=== PATIENT | female | born 1950 | race Caucasian/White ===

== ENCOUNTER 2016-08-26 | Emergency (ER) | payer MEDICARE ==
[2016-08-26] MEDS ORDERED: ASPIRIN CHEW 81 MG TABLET PO STA (00:37)
[2016-08-26] MEDS ORDERED: ASPIRIN CHEW 81 MG TABLET ONE (00:49)
[2016-08-26] MEDS ORDERED: AMOX/CLAV 875 MG/125 MG TABLET PO STA (02:23)
[2016-08-26] MEDS ORDERED: AMOX/CLAV 875 MG/125 MG TABLET PO ONE (02:35)
== END 2016-08-26 05:13 | disposition home or self-care (01) ==
DX: R07.89 Other chest pain (principal); J32.9 Chronic sinusitis, unspecified; I25.10 Atherosclerotic heart disease of native coronary artery without angina pectoris; Z95.5 Presence of coronary angioplasty implant and graft; I10 Essential (primary) hypertension; E11.42 Type 2 diabetes mellitus with diabetic polyneuropathy; Z79.4 Long term (current) use of insulin; M79.7 Fibromyalgia; Z79.02 Long term (current) use of antithrombotics/antiplatelets; Z79.82 Long term (current) use of aspirin
CPT/HCPCS: 36415; 71020; 80053; 83690; 83880; 84443; 84484; 85025; 85610; 85730; 93005; 93010; 99284; 99285; A9270

== ENCOUNTER 2016-09-04 14:16 | Outpatient (CLI) | payer MEDICARE | END 2016-09-04 14:17 | disposition home or self-care (01) | DX: I10 Essential (primary) hypertension (principal) ==

== ENCOUNTER 2017-02-01 11:47 | Outpatient (CLI) | payer MEDICARE ==
[2017-02-01 13:41] LABS: ALBUMIN/GLOBULIN RATIO 0.9 (1.0-2.2); BILIRUBIN,TOTAL 0.3 mg/dL (0.2-1.0); CALCIUM 9.6 mg/dL (8.5-10.3); CREATININE 1.2 mg/dL (0.4-1.0); PHOSPHORUS 4.3 mg/dL (2.5-4.6); POTASSIUM 5.1 mmol/L (3.5-5.0); TOTAL PROTEIN 7.7 g/dL (6.7-8.2); URIC ACID 7.5 mg/dL (2.6-7.2)
== END 2017-02-01 11:48 | disposition home or self-care (01) ==
LOC: LAB 11:47
PROVIDERS: ATTEND Internal Medicine Nephrology
DX: N17.9 Acute kidney failure, unspecified (principal); N18.3 Chronic kidney disease, stage 3 (moderate); E11.21 Type 2 diabetes mellitus with diabetic nephropathy; I13.10 Hypertensive heart and chronic kidney disease without heart failure, with stage 1 through stage 4 chronic kidney disease, or unspecified chronic kidney disease; M10.00 Idiopathic gout, unspecified site
CPT/HCPCS: 36415; 80053; 82570; 83970; 84100; 84156; 84550

== ENCOUNTER 2017-07-28 12:20 | Outpatient (CLI) | payer MEDICARE ==
[2017-07-28 12:52] LABS: PHOSPHORUS 4.8 mg/dL (2.5-4.6); URIC ACID 7.6 mg/dL (2.6-7.2)
[2017-07-28 13:16] LABS: CREATININE,URINE 195.5 mg/dL; PROTEIN/CREATININE RATIO,URINE 0.6 (<=0.2)
[2017-07-29 12:56] LABS: HEPATITIS C ANTIBODY NON-REACTIVE (NON-REACTIVE)
== END 2017-07-28 12:21 | disposition home or self-care (01) ==
LOC: LAB 12:20
PROVIDERS: ATTEND Internal Medicine Nephrology
DX: I12.9 Hypertensive chronic kidney disease with stage 1 through stage 4 chronic kidney disease, or unspecified chronic kidney disease (principal); N18.3 Chronic kidney disease, stage 3 (moderate); N17.9 Acute kidney failure, unspecified; E11.9 Type 2 diabetes mellitus without complications
CPT/HCPCS: 36415; 82570; 83880; 83970; 84100; 84156; 84550; 86803

== ENCOUNTER 2017-08-19 16:54 | Outpatient (CLI) | payer MEDICARE ==
[2017-08-19 17:09] LABS: BILIRUBIN,URINE NEGATIVE (NEGATIVE); CLARITY,URINE CLEAR (CLEAR); GLUCOSE, URINE (UA) NEGATIVE (NEGATIVE); KETONES,URINE (UA) NEGATIVE (NEGATIVE); LEUKOCYTE ESTERASE, URINE NEGATIVE (NEGATIVE); NITRITE,URINE NEGATIVE (NEGATIVE); OCCULT BLOOD,URINE NEGATIVE (NEGATIVE); PROTEIN,URINE 100 mg/dL (NEGATIVE); UROBILINOGEN,URINE 0.2 (NORMAL) E.U./dL (NORMAL)
[2017-08-19 17:29] LABS: ALBUMIN 3.6 g/dL (3.2-5.5); BILIRUBIN,DIRECT 0.1 mg/dL (0.1-0.5); BILIRUBIN,TOTAL 0.3 mg/dL (0.2-1.0); TOTAL PROTEIN 7.6 g/dL (6.7-8.2)
[2017-08-19 17:40] LABS: BACTERIA,URINE Rare /HPF (None Seen); MUCUS,URINE Few Strands; RBC,URINE 0-5 /HPF (0-5); SQUAMOUS EPITHELIAL CELL,UR FEW Squamous (<= Few)
== END 2017-08-19 16:55 | disposition home or self-care (01) ==
LOC: LAB 16:54
PROVIDERS: ATTEND Internal Medicine
DX: N18.3 Chronic kidney disease, stage 3 (moderate) (principal)
CPT/HCPCS: 36415; 80076; 81001; 87086

== ENCOUNTER 2017-08-30 07:10 | Day surgery (SDC) | payer MEDICARE ==
[2017-08-30] MEDS ORDERED: LACTATED RINGERS 1,000 ML IV ONE (07:48)
[2017-08-30] MEDS ORDERED: fentaNYL 100 MCG/2 ML VIAL IVP ONE (07:50)
[2017-08-30] MEDS ORDERED: MIDAZOLAM 2 MG/2 ML VIAL IVP ONE (07:50)
[2017-08-30] MEDS ORDERED: ONDANSETRON 4 MG/2 ML VIAL IVP ONE (07:50)
[2017-08-30 09:00] VITALS: BP 139/61
== END 2017-08-30 07:11 | disposition home or self-care (01) ==
LOC: SDS 07:10
PROVIDERS: ATTEND Surgery
PROC: 0DBN8ZX Excision of Sigmoid Colon, Via Natural or Artificial Opening Endoscopic, Diagnostic (ICD-10-PCS; 2017-08-30)
PROC: 0DBH8ZX Excision of Cecum, Via Natural or Artificial Opening Endoscopic, Diagnostic (ICD-10-PCS; principal; 2017-08-30 08:15)
DX: Z12.11 Encounter for screening for malignant neoplasm of colon (principal); D12.5 Benign neoplasm of sigmoid colon; D12.0 Benign neoplasm of cecum; K64.8 Other hemorrhoids; K57.30 Diverticulosis of large intestine without perforation or abscess without bleeding; E78.5 Hyperlipidemia, unspecified; E11.9 Type 2 diabetes mellitus without complications; I10 Essential (primary) hypertension; I25.10 Atherosclerotic heart disease of native coronary artery without angina pectoris; Z95.5 Presence of coronary angioplasty implant and graft; Z79.82 Long term (current) use of aspirin; Z79.4 Long term (current) use of insulin; Z87.891 Personal history of nicotine dependence
CPT/HCPCS: 45385; J7120

== ENCOUNTER 2017-09-03 12:53 | Outpatient (CLI) | payer MEDICARE ==
[2017-09-03 13:39] LABS: BILIRUBIN,URINE NEGATIVE (NEGATIVE); GLUCOSE, URINE (UA) NEGATIVE (NEGATIVE); KETONES,URINE (UA) NEGATIVE (NEGATIVE); LEUKOCYTE ESTERASE, URINE NEGATIVE (NEGATIVE); NITRITE,URINE NEGATIVE (NEGATIVE); OCCULT BLOOD,URINE NEGATIVE (NEGATIVE); PH,URINE 5.5 PH (5.0-7.5); PROTEIN,URINE 100 mg/dL (NEGATIVE); UROBILINOGEN,URINE 0.2 (NORMAL) E.U./dL (NORMAL)
[2017-09-03 13:41] LABS: BASOPHILS # (AUTO) 0.1 10^3/uL (0.0-0.1); BASOPHILS % (AUTO) 0.8 %; EOSINOPHILS # (AUTO) 0.3 10^3/uL (0.0-0.7); EOSINOPHILS % (AUTO) 3.1 %; LYMPHOCYTES # (AUTO) 2.5 10^3/uL (1.5-3.5); MEAN CORPUSCULAR HEMOGLOBIN 27.9 pg (27.0-31.0); MEAN CORPUSCULAR HGB CONC 32.7 g/dL (32.0-36.0); MEAN CORPUSCULAR VOLUME 85.3 fL (81.0-99.0); MEAN PLATELET VOLUME 8.3 fL (7.9-10.8); MONOCYTES # (AUTO) 0.5 10^3/uL (0.0-1.0); MONOCYTES % (AUTO) 5.1 %; PLT - PLATELET COUNT 221 10^3/uL (130-450); RED BLOOD COUNT 3.93 10^6/uL (4.20-5.40); RED CELL DISTRIBUTION WIDTH 17.1 % (12.0-15.0); WHITE BLOOD COUNT 10.4 x10^3/uL (4.8-10.8)
[2017-09-03 14:02] LABS: CLARITY,URINE HAZY (CLEAR)
[2017-09-03 14:11] LABS: BACTERIA,URINE Many /HPF (None Seen); CASTS, URINE 3-5 Hyaline Casts /LPF; RBC,URINE 0-5 /HPF (0-5); SQUAMOUS EPITHELIAL CELL,UR MANY Squamous (<= Few)
[2017-09-03 14:16] LABS: ALBUMIN 3.2 g/dL (3.2-5.5); CALCIUM 9.2 mg/dL (8.5-10.3); CREATININE 1.3 mg/dL (0.4-1.0); PHOSPHORUS 3.6 mg/dL (2.5-4.6)
[2017-09-03 14:33] LABS: CREATININE,URINE 103.2 mg/dL; MICROALBUMIN,URINE 44.1 mg/dL (0-300.0); PROTEIN/CREATININE RATIO,URINE 0.6 (<=0.2)
== END 2017-09-03 12:54 | disposition home or self-care (01) ==
LOC: LAB 12:53
PROVIDERS: ATTEND Internal Medicine
DX: N18.3 Chronic kidney disease, stage 3 (moderate) (principal); N20.0 Calculus of kidney
CPT/HCPCS: 36415; 80069; 81001; 82043; 82306; 82570; 83970; 84156; 84550; 85025; 87086

== ENCOUNTER 2017-11-23 14:48 | Outpatient (CLI) | payer MEDICARE ==
[2017-11-23 15:31] LABS: BASOPHILS # (AUTO) 0.1 10^3/uL (0.0-0.1); BASOPHILS % (AUTO) 0.6 %; EOSINOPHILS # (AUTO) 0.3 10^3/uL (0.0-0.7); EOSINOPHILS % (AUTO) 2.8 %; HGB - HEMOGLOBIN 11.3 g/dL (12.0-16.0); LYMPHOCYTES # (AUTO) 2.2 10^3/uL (1.5-3.5); LYMPHOCYTES % (AUTO) 18.1 %; MEAN CORPUSCULAR HEMOGLOBIN 28.7 pg (27.0-31.0); MEAN CORPUSCULAR HGB CONC 32.4 g/dL (32.0-36.0); MEAN CORPUSCULAR VOLUME 88.4 fL (81.0-99.0); MEAN PLATELET VOLUME 8.7 fL (7.9-10.8); MONOCYTES # (AUTO) 0.5 10^3/uL (0.0-1.0); MONOCYTES % (AUTO) 4.3 %; NEUTROPHILS # (AUTO) 8.9 10^3/uL (1.5-6.6); NEUTROPHILS % (AUTO) 74.2 %; PLT - PLATELET COUNT 232 10^3/uL (130-450); RED BLOOD COUNT 3.96 10^6/uL (4.20-5.40); RED CELL DISTRIBUTION WIDTH 18.6 % (12.0-15.0)
[2017-11-23 16:14] LABS: CREATININE,URINE 195.1 mg/dL; PROTEIN/CREATININE RATIO,URINE 0.4 (<=0.2)
[2017-11-23 16:45] LABS: CLARITY,URINE CLEAR (CLEAR)
[2017-11-23 16:46] LABS: BILIRUBIN,URINE NEGATIVE (NEGATIVE); GLUCOSE, URINE (UA) NEGATIVE (NEGATIVE); KETONES,URINE (UA) NEGATIVE (NEGATIVE); LEUKOCYTE ESTERASE, URINE NEGATIVE (NEGATIVE); NITRITE,URINE NEGATIVE (NEGATIVE); OCCULT BLOOD,URINE NEGATIVE (NEGATIVE); PROTEIN,URINE 100 mg/dL (NEGATIVE); UROBILINOGEN,URINE 0.2 (NORMAL) E.U./dL (NORMAL)
[2017-11-23 16:47] LABS: BACTERIA,URINE None Seen /HPF (None Seen); CASTS, URINE 0-2 Hyaline Casts /LPF; RBC,URINE 0-5 /HPF (0-5); SQUAMOUS EPITHELIAL CELL,UR MOD Squamous (<= Few)
== END 2017-11-23 14:49 | disposition home or self-care (01) ==
LOC: LAB 14:48
PROVIDERS: ATTEND Internal Medicine
DX: N18.3 Chronic kidney disease, stage 3 (moderate) (principal); N20.0 Calculus of kidney
CPT/HCPCS: 36415; 81001; 82570; 83970; 84156; 84550; 85025; 87086

== ENCOUNTER 2018-05-12 13:23 | Outpatient (CLI) | payer MEDICARE ==
[2018-05-12 17:17] LABS: BILIRUBIN,URINE NEGATIVE (NEGATIVE); GLUCOSE, URINE (UA) NEGATIVE (NEGATIVE); KETONES,URINE (UA) NEGATIVE (NEGATIVE); LEUKOCYTE ESTERASE, URINE NEGATIVE (NEGATIVE); NITRITE,URINE NEGATIVE (NEGATIVE); OCCULT BLOOD,URINE NEGATIVE (NEGATIVE); PH,URINE 5.5 PH (5.0-7.5); PROTEIN,URINE 100 mg/dL (NEGATIVE); UROBILINOGEN,URINE 0.2 (NORMAL) E.U./dL (NORMAL)
[2018-05-12 17:24] LABS: BASOPHILS % (AUTO) 0.5 %; EOSINOPHILS # (AUTO) 0.3 10^3/uL (0.0-0.7); EOSINOPHILS % (AUTO) 3.6 %; HGB - HEMOGLOBIN 11.9 g/dL (12.0-16.0); LYMPHOCYTES # (AUTO) 1.9 10^3/uL (1.5-3.5); LYMPHOCYTES % (AUTO) 20.4 %; MEAN CORPUSCULAR HEMOGLOBIN 29.6 pg (27.0-31.0); MEAN CORPUSCULAR VOLUME 89.6 fL (81.0-99.0); MEAN PLATELET VOLUME 9.6 fL (7.9-10.8); MONOCYTES # (AUTO) 0.6 10^3/uL (0.0-1.0); MONOCYTES % (AUTO) 5.9 %; NEUTROPHILS # (AUTO) 6.6 10^3/uL (1.5-6.6); NEUTROPHILS % (AUTO) 69.6 %; PLT - PLATELET COUNT 197 10^3/uL (130-450); RED BLOOD COUNT 4.01 10^6/uL (4.20-5.40); RED CELL DISTRIBUTION WIDTH 18.3 % (12.0-15.0); WHITE BLOOD COUNT 9.4 x10^3/uL (4.8-10.8)
[2018-05-12 17:31] LABS: BACTERIA,URINE None Seen /HPF (None Seen); CLARITY,URINE CLEAR (CLEAR); RBC,URINE None Seen /HPF (0-5); SQUAMOUS EPITHELIAL CELL,UR MANY Squamous (<= Few)
[2018-05-12 17:51] LABS: CREATININE,URINE 148.4 mg/dL; MICROALBUM/CREATININE RATIO,UR 331.5 ug/mg (<30.0); MICROALBUMIN,URINE 49.2 mg/dL (0-300.0); PROTEIN/CREATININE RATIO,URINE 0.5 (<=0.2)
== END 2018-05-12 13:24 | disposition home or self-care (01) ==
LOC: LAB.F 13:23
PROVIDERS: ATTEND Internal Medicine
DX: N18.3 Chronic kidney disease, stage 3 (moderate) (principal)
CPT/HCPCS: 36415; 81001; 82043; 82570; 83970; 84156; 85025; 87086

== ENCOUNTER 2018-07-28 11:26 | Outpatient (CLI) | payer MEDICARE ==
--- NOTE | 2018-07-28 18:36 | CT Report ---
Reason: LOCALIZED SWELLING, MASS AND LUMP, HEAD Procedure Date: 07/28/2018 Accession Number: [id number] / [id number] Procedure: CT - Head W/O CPT Code: FULL RESULT: EXAM: CT HEAD EXAM DATE: 07/28/2018 12:23 PM. CLINICAL HISTORY: LOCALIZED SWELLING, MASS AND LUMP, HEAD. COMPARISON: HEAD W/O 09/29/2013 1:09 PM. TECHNIQUE: Multiaxial CT images were obtained from the foramen magnum to the vertex. Reformats: Sagittal and coronal. IV contrast: None. In accordance with CT protocol optimization, one or more of the following dose reduction techniques were utilized for this exam: automated exposure control, adjustment of mA and/or KV based on patient size, or use of iterative reconstructive technique. FINDINGS: Parenchyma: No intraparenchymal hemorrhage. No evidence of mass, midline shift, or CT findings of infarction. Song-white differentiation is distinct. Extraaxial Spaces: Normal for age. No subdural or epidural collections identified. Ventricles: Normal in size and position. Sinuses and Orbits: Imaged paranasal sinuses, orbits, and mastoids show no significant abnormality. Prior bilateral cataract surgery. Bones: No evidence of fracture or calvarial defect. No focal bone lesions are identified. Other: No marker is placed to indicate the area of concern. No scalp swelling is identified. IMPRESSION: Normal head CT. RADIA
== END 2018-07-28 11:27 | disposition home or self-care (01) ==
LOC: DI 11:26
PROVIDERS: ATTEND Specialist
DX: R22.0 Localized swelling, mass and lump, head (principal)
CPT/HCPCS: 70450

== ENCOUNTER 2018-12-27 12:55 | Emergency (ER) | payer MEDICARE ==
[2018-12-27 13:05] VITALS: BP 100/59
[2018-12-27] MEDS ORDERED: diphenhydrAMINE 25 MG CAPSULE PO STA (13:30)
--- NOTE | 2018-12-27 13:33 | ED Physician Documentation ---
PD HPI SKIN - Stated complaint Stated Complaint: RASH - Chief complaint Chief Complaint: Wound - History obtained from History obtained from: Patient - History of Present Illness Timing - onset: How many days ago (2) Timing - duration: Days (2) Timing - details: Abrupt onset Location: Face, Neck, Bodywide Quality / character: Itchy, Other (blanching, red) Improved by: Other (nothing) Worsened by (comment): COMMENT (nothing) Associated symptoms: No: Fever, Myalgias, Joint pain, Headache, Facial swelling, Dyspnea, Abd pain, N/V/D Contributing factors: Exposed to medication (zantac but has tolerated benadryl previously) Similar symptoms before: Has not had sx before Recently seen: Not recently seen - Treatment prior to arrival Treatment prior to arrival: none - Additional information Additional information: Denies difficulty breathing, nausea, vomiting. Denies recent exposure to new lotions/shampoos. Only change was a new medication - zantac for GERD that she started 2 weeks ago. Review of Systems Ten Systems: 10 systems reviewed and negative Constitutional: denies: Fever, Chills Throat: reports: Reviewed and negative. denies: Sore throat, Swollen tonsils Cardiac: denies: Chest pain / pressure Respiratory: reports: Cough. denies: Dyspnea GI: denies: Abdominal Pain, Abdominal Swelling, Nausea, Vomiting Skin: reports: Rash Musculoskeletal: reports: Reviewed and negative PD PAST MEDICAL HISTORY - Past Medical History Cardiovascular: Hypertension, High cholesterol, Coronary artery disease Respiratory: Sleep apnea, CPAP use Endocrine/Autoimmune: Type 2 diabetes GI: GERD : Kidney stones HEENT: Other Psych: Claustrophobia Musculoskeletal: Osteoarthritis, Fibromyalgia, Gout Derm: Herpes zoster - Past Surgical History General: Cholecystectomy, Appendectomy, Colonoscopy Ortho: Shoulder arthroplasty, Other Cardiovascular: Coronary stent HEENT: Tonsil/Adenoidectomy - Present Medications Home Medications: Ambulatory Orders Medication Instructions Recorded Confirmed Allopurinol 300 mg PO DAILY 08/02/14 08/30/17 Aspirin [Aspir 81] 81 mg PO DAILY 08/02/14 08/30/17 Atenolol 50 mg PO BID 08/02/14 08/30/17 Cholecalciferol (Vitamin D3) 2,000 unit PO DAILY 08/02/14 08/30/17 [Vitamin D] Clopidogrel [Plavix] 75 mg PO DAILY 08/02/14 08/30/17 Duloxetine HCl [Cymbalta] 60 mg PO DAILY 08/02/14 08/30/17 Famotidine 40 mg PO PRN PRN 08/02/14 08/30/17 Pravastatin Sodium 80 mg PO QPM 08/02/14 08/30/17 Insulin NPH Human Isophane 50 units SQ DAILY 08/26/16 08/30/17 [Humulin N] Insulin NPH Human Isophane 60 units SQ DAILY PM 08/26/16 08/30/17 [Humulin N] Insulin Regular, Human [Humulin R] 30 units SQ BID 08/26/16 08/30/17 Ubidecarenone/Vitamin E Mixed 100 mg PO DAILY 08/26/16 08/30/17 [[id number] E 100 mg-10 Unit Sfg] Vitamin B Complex 1 tab PO DAILY 08/26/16 08/30/17 amLODIPine [Norvasc] 5 mg PO DAILY 08/26/16 08/30/17 - Allergies Allergies/Adverse Reactions: Allergies Allergy/AdvReac Type Severity Reaction Status Date / Time iopamidol [From Isovue-M] Allergy Unknown Verified 08/30/17 07:35 codeine AdvReac Severe N/V Verified 08/30/17 07:35 hydrochlorothiazide AdvReac Severe Headache Verified 08/30/17 07:35 hydrocodone bitartrate * AdvReac Severe "Pancreatic Verified 08/30/17 07:35 [From Vicodin] spasms" lisinopril AdvReac Severe Increased Verified 08/30/17 07:35 K+ level oxycodone HCl * AdvReac Severe N/V Verified 08/30/17 07:35 [From Percocet] [id number] Reductase AdvReac Severe Muscle Verified 08/30/17 07:35 Inhibitor Cramps triamterene AdvReac Severe Headache Verified 08/30/17 07:35 Sulfa (Sulfonamide AdvReac Intermediate Headache Verified 08/30/17 07:35 Antibiotics) Tetracyclines AdvReac Intermediate N/V Verified 08/30/17 07:35 tape AdvReac Severe Blisters Uncoded 08/30/17 07:35 - Social History Smoking Status: Never smoker PD ED PE NORMAL - Vitals Vital signs reviewed: Yes - General General: Alert and oriented X 3, No acute distress, Well developed/nourished - HEENT HEENT: Atraumatic, Moist mucous membranes, Pharynx benign, Other (no swelling of mucous membranes, lips or tongue, normal voice) - Neck Neck: Supple, no meningeal sign, No JVD - Cardiac Cardiac: RRR, No murmur, No gallop, No rub - Respiratory Respiratory: No respiratory distress, Clear bilaterally - Abdomen Abdomen: Soft, Non tender, Non distended - Female Female : Deferred - Rectal Rectal: Deferred - Derm Derm: Normal color, Warm and dry, Other (diffuse urticarial rash, blanching, erythematous, pruritic. no sloughing of skin) - Extremities Extremities: No deformity, No edema - Neuro Neuro: Alert and oriented X 3 Eye Opening: Spontaneous Motor: Obeys Commands Verbal: Oriented GCS Score: 15 - Psych Psych: Normal mood, Normal affect Results - Vitals Vitals: Vital Signs - 24 hr 12/27/18 13:02 Temperature 37.2 C Heart Rate 80 Respiratory 18 Rate Blood Pressure 100/59 L O2 Saturation 97 Oxygen O2 Source Room air PD MEDICAL DECISION MAKING - ED course Complexity details: considered differential, d/w patient, d/w family ED course: DDx - nonspecific rash, allergic urticaria, viral urticaria, cold urticaria, heat rash, idiopathic urticaria, viral exanthem. 68 y/o F with urticarial rash on trunk and extremities, only new exposure was to zantac. Will advise pt to hold zantac and switch to PPI. She has tolerated benadryl previously thus will continue supportive care for urticaria with benadryl. Departure - Departure Disposition: 01 Home, Self Care Clinical Impression: Urticaria Condition: Stable Record reviewed to determine appropriate education?: Yes Instructions: ED Urticaria Follow-Up: Provider,Other [Primary Care Provider] - As Needed Comments: Stop taking zantac as this could have caused your hives. You can take prilosec over the counter instead as needed for pain after eating (GERD).Take 25 to 50mg of benadryl every 6 hours as needed for itching. Return to the ED if you are having difficulty breathing or mouth swelling or other new concerns.
[2018-12-27] MEDS ORDERED: dexAMETHasone 4 MG TABLET PO STA (13:34)
[2018-12-27] MEDS ORDERED: dexAMETHasone 4 MG TABLET PO SCH (17:00)
== END 2018-12-27 13:58 | disposition home or self-care (01) ==
LOC: ED 12:55
DX: L50.9 Urticaria, unspecified (principal); I10 Essential (primary) hypertension; K21.9 Gastro-esophageal reflux disease without esophagitis; E11.9 Type 2 diabetes mellitus without complications; Z79.4 Long term (current) use of insulin; Z79.82 Long term (current) use of aspirin; Z79.02 Long term (current) use of antithrombotics/antiplatelets
CPT/HCPCS: 99282; 99283; A9270; J8540

== ENCOUNTER 2019-01-27 15:30 | Outpatient (CLI) | payer MEDICARE ==
[2019-01-27 15:51] LABS: CALCIUM 9.7 mg/dL (8.5-10.3); CREATININE 1.4 mg/dL (0.4-1.0)
== END 2019-01-27 15:31 | disposition home or self-care (01) ==
LOC: LAB 15:30
PROVIDERS: ATTEND Registered Nurse
DX: I25.118 Atherosclerotic heart disease of native coronary artery with other forms of angina pectoris (principal)
CPT/HCPCS: 36415; 80048